=== PATIENT | female | born 1980 | race Two or more races ===

== ENCOUNTER 2022-09-16 15:57 | Emergency (ER) | payer MEDICAID ==
[~2022-09-16] VITALS: Ht 154.9 cm; Wt 80.0 kg
[2022-09-16 16:07] VITALS: BP 148/100
[2022-09-16] MEDS ORDERED: AMLO-258 PO (16:10)
== END 2022-09-16 17:47 | disposition left against medical advice (07) ==
LOC: EMS 16:00
DX: Z53.21 Procedure and treatment not carried out due to patient leaving prior to being seen by health care provider (principal)
CPT/HCPCS: 99281; Z7502